=== PATIENT | female | born 1965 ===

== ENCOUNTER → 2024-01-20 | Outpatient (CLI) | payer OTHER ==
[~2024-01-20] MED LIST: MOTRIN 600600 MG/TAB PO; NEXIUM PO; NORCO 325 MG-51 TAB PO; PRINIVIL10 MG PO; SENNA-LAX8.6 MG PO
== END ==
LOC: MC.RAD 12:18
DX: N63.15 Unspecified lump in the right breast, overlapping quadrants (principal); N60.99 Unspecified benign mammary dysplasia of unspecified breast
CPT/HCPCS: C1769